=== PATIENT | male | born 1995 | race Caucasian/White ===

== ENCOUNTER 2018-05-03 14:44 | Inpatient (IN) | payer BC, OTHER ==
[~2018-05-03] VITALS: Ht 180.3 cm; Wt 77.1 kg
--- NOTE | 2018-05-03 15:40 | NUR ---
Pre- admission Patient met in intake office @ 1540, he is alert and oriented with a steady gait and is able to answer questions appropriately and clearly. He states he is here at [facility] for a medically supervised withdrawal from Opiates ( heroin IV ) and states he also uses Methamphetamines IV daily. VS = BP 141/91, HR 99, O2 99%, RR 18, NKA, 0/10 pain He reports he last used 0.5G Heroin IV @ noon today and <0.5G Meth IV @ noon today. He is not displaying any signs of withdrawal at this time. Will continue assessment when Patient is on the floor.
[2018-05-03] MEDS ORDERED: IBUPROFEN 600 MG TABLET PO PRN (18:00)
[2018-05-03] MEDS ORDERED: diphenhydrAMINE 50 MG CAPSULE PO PRN (18:00)
[2018-05-03] MEDS ORDERED: METHOCARBAMOL 750 MG TABLET PO PRN (18:00)
[2018-05-03] MEDS ORDERED: ACETAMINOPHEN 325 MG TABLET PO PRN (18:00)
[2018-05-03] MEDS ORDERED: LOPERAMIDE HCL 2 MG CAPSULE PO PRN ×2 (18:00)
[2018-05-03] MEDS ORDERED: MAG HYDROX/AL HYDROX/SIMETH 30 ML LIQUID UDC PO PRN (18:00)
[2018-05-03] MEDS ORDERED: CLONIDINE HCL 0.1 MG TABLET PO PRN (18:00)
[2018-05-03] MEDS ORDERED: DICYCLOMINE HCL 20 MG TABLET PO PRN (18:00)
[2018-05-03] MEDS ORDERED: ONDANSETRON 4 MG/2 ML VIAL IM PRN (18:00)
[2018-05-03] MEDS ORDERED: HYDROXYZINE PAMOATE 25 MG CAPSULE PO PRN (18:00)
[2018-05-03] MEDS ORDERED: BUPRENORPHINE HCL 2 MG TAB.SUBL SL PRN (18:00)
[2018-05-03] MEDS ORDERED: MAGNESIUM HYDROXIDE 30 ML LIQUID UDC PO PRN (18:00)
[2018-05-03] MEDS ORDERED: LORAZEPAM 1 MG TABLET PO PRN (18:00)
[2018-05-03] MEDS ORDERED: ONDANSETRON ODT 4 MG TAB.RAPDIS SL PRN (18:00)
--- NOTE | 2018-05-03 18:00 | NUR ---
Admission Note Patient is a 22 yr old male who was admitted to [facility] on 05/03/18 for a medically supervised withdrawal from Opiates ( heroin IV) and also states he was using Methamphetamines IV. He is alert and oriented and does not appear in withdrawal but is slightly intoxicated . He has a sad flat affect and avoids eye contact, his body movements are fidgety and he is hyper active at times. He claims no medical / psych history, takes no medications, has no PCP, heroin OD x2 one which he was hospitalized . Substance Use History: Heroin 1G IV daily for last 3 weeks, last used 0.5G IV at noon today Methamphetamines 1G daily for the past 3 weeks, last used < 0.5G at noon today. Patient reports he has been in a sober living for the past month up until today and has been using while living there, he reports he achieved 60 days of sobriety prior to that in approx January/Mar 2018. His longest period of sobriety was 9 months in [id number]. Treatment History: [facility] [id number] detox and then Treatment to Sober living ( currently in Sober Living there now) [facility] ( [place]) [facility] when he was 15 yrs old Patient states his reason for being here today is that he is trying to do the right thing and get clean now, he is tired of his way of life and needs to be more productive. He states he has a good support system: his girlfriend and parents are supportive and want him to get the help he needs to lead a happy life. Patient states his barriers for staying sober are poor impulse control, negative self image, peer pressure and negative social acquaintances. MRSA swab sent to lab Unable to score admission COWS due to patient not being in withdrawal, he states his symptoms when he withdraws are N/V, Muscle aches, irritability, cravings, diarrhea and stomach pains. Educated Pt about plan of care including detox, group therapy, and discharge planning. Encouraged Pt to be open and honest and verbalized support for his recovery. Oriented Pt to room and unit. Addendum: 05/04/18 at 1317 by ARJUN CASEY RN Additional information: Patient began using heroin 7 years ago and methamphetamines 9 years ago. Both of his overdoses were from heroin and they both occurred 4 years ago and required medical treatment. Clarification: Patient was not at [facility] from [id number]. He was at their detox and residential facilities for 2 months total in January and March of 2018. He transitioned to their sober living one month ago and that is where he began using again.
[2018-05-03 18:29] LABS: BASOPHILS % (AUTO) 0.3 % (0.0-2.0); EOSINOPHILS # (AUTO) 0.1 K/uL (0.0-0.7); EOSINOPHILS % (AUTO) 1.1 % (0.0-7.0); HEMATOCRIT 46.3 % (36.7-47.1); HEMOGLOBIN 15.8 g/dL (12.5-16.3); LYMPHOCYTES # (AUTO) 2.9 K/uL (20.0-40.0); LYMPHOCYTES % (AUTO) 33.8 % (20.5-51.5); MEAN CORPUSCULAR HEMOGLOBIN 29.5 uug (23.8-33.4); MEAN CORPUSCULAR HGB CONC 34 g/dL (32.5-36.3); MEAN CORPUSCULAR VOLUME 86.2 fL (73.0-96.2); MONOCYTES # (AUTO) 0.9 K/uL (2.0-10.0); MONOCYTES % (AUTO) 9.9 % (0.0-11.0); NEUTROPHILS # (AUTO) 4.7 K/uL (1.8-8.9); NEUTROPHILS % (AUTO) 54.9 % (38.5-71.5); PLATELET COUNT (AUTO) 298 K/uL (152-348); RED BLOOD CELL COUNT(AUTO) 5.37 MIL/uL (4.06-5.63); WHITE BLOOD COUNT (AUTO) 8.6 K/uL (3.6-10.2)
[2018-05-03 18:36] LABS: *AMPHETAMINE, URINE POSITIVE (NEGATIVE); *BARBITURATE, URINE NEGATIVE (NEGATIVE); *CANNABINOID, URINE POSITIVE (NEGATIVE); *COCCAINE, URINE NEGATIVE (NEGATIVE); *OPIATE, URINE POSITIVE (NEGATIVE); *PHENCYCLIDINE SCREEN,URINE NEGATIVE (NEGATIVE)
[2018-05-03 18:39] LABS: ALANINE AMINOTRANSFERASE 90 U/L (16-63); ALKALINE PHOSPHATASE 59 U/L (50-136); ASPARTATE AMINOTRANSFERASE 34 U/L (15-37); CARBON DIOXIDE 31 mmol/L (21-32); CHLORIDE 104 mmol/L (98-107); CREATININE 1.3 mg/dL (0.6-1.3); GLUCOSE 59 mg/dL (74-106); MAGNESIUM 2.3 mg/dL (1.8-2.4); POTASSIUM 3.9 mmol/L (3.5-5.1); UREA NITROGEN, BLOOD 13 mg/dL (7-18)
[2018-05-03 18:44] LABS: ETHANOL < 3 MG/DL (0-0)
[2018-05-03 18:48] LABS: THYROID STIMULATING HORMONE 1.903 mIU/mL (0.358-3.740)
--- NOTE | 2018-05-03 18:53 | NUR ---
End Of Shift Patient is a 22 yr old male who was admitted today 05/03/18 @ 1730 for a medically supervised withdrawal from Opiates ( heroin IV ). He has been placed on a 4 day Subutex taper which will start tomorrow 05/04/18. Patient has provided a UDS and blood labs have been drawn. No PRN medications have been given. MRSA swab sent to lab. COWS 7 @ 1800. Continue to follow MD plan of care and offer support and encouragement. Endorsed to [employer] 2nd shift.
--- NOTE | 2018-05-03 19:30 | NUR ---
Start of shift Patient is a 22 year old male, admitted on 05/03/2018 for medically supervised Opiate withdrawal. Patient is on a 4 day Subutex taper. Patients last COWS was 7. Per endorsement patient did not have any PRN during day shift. Patient is on Fall and Seizure precautions. Upon rounds patient was noted in room watching tv, reviewed plan of care with patient and he verbalized understanding. Patient is seems depressed, flat affect, and anxious. Respirations are even and unlabored. Patients bed lock in low position, side rails raised x2, and call light within reach. Will continue to monitor.
[2018-05-03 20:00] VITALS: BP 136/69
--- NOTE | 2018-05-03 20:00 | NUR ---
COWS Assessment Patient states he is presenting with s/s of withdrawal as follow: tremors, anxiety, agitation, body aches, and mild sweats. Patients COWS is 8. Respirations are even and unlabored. Safety measures in place will continue to monitor.
[2018-05-04] VITALS: BP 128/78
--- NOTE | 2018-05-04 | NUR ---
COWS Deferred Patient is noted resting in bed with eyes closed, respirations are even and unlabored. Per protocol patient is to be assessed while awake for COWS. Safety measures in place will continue to monitor.
[2018-05-04 04:00] VITALS: BP 130/76
--- NOTE | 2018-05-04 07:15 | NUR ---
Start of Shift Note Pt. is 22 y/o male admitted for medically managed withdrawal from Opiates. Pt. was also using methamphetamine concurrently with his opiates abuse. Pt. was placed on a 4 day Subutex taper to manage his withdrawal symptoms. Endorse from previous shift pt. presented with depression, and anxiety. Received pt. in room. Pt. in bed with eyes closed. No signs of distress noted at this time. Safety measures in place. Will continue to monitor pt.s behavior at this time for safety.
--- NOTE | 2018-05-04 07:18 | NUR ---
End of shift Patient is a 22 year old male, admitted on 05/03/2018 for medically supervised Opiate withdrawal. Patient is on a 4 day Subutex taper. Patients last COWs was 8. Per endorsement patient did not have any PRN during day shift. Patient is on Fall and Seizure precautions. Patient is seems depressed, flat affect, and anxious. Patient slept for 7 hours and had a total intake of 1,210 ml. Patient voided x2 and had no bowel movements during this shift. Respirations are even and unlabored. Patients bed lock in low position, side rails raised x2, and call light within reach. Will endorse to day shift.
[2018-05-04 08:00] VITALS: BP 140/83
--- NOTE | 2018-05-04 08:00 | NUR ---
COWS Assessment COWS of 10. Pt. in room laying in bed. Pt. presents as disheveled with flushed facial skin, restlessness, body aches, congestion, and anxiety. Will give medication as ordered. Will continue to monitor pt.'s behavior for safety.
[2018-05-04] MEDS ORDERED: 4 DAY TAPER BUPRENORPHINE -SERENITY PROTOCOL SL PRN (09:00)
[2018-05-04] MEDS ORDERED: TUBERCULIN,PURIF.PROT.DERIV. 5 TU/0.1 ML TEST ID ONE (09:00)
[2018-05-04] MEDS: BUPRENORPHINE HCL 2 MG TAB.SUBL SL SCH ×3 (09:03→21:09)
[2018-05-04 12:00] VITALS: BP 141/76
--- NOTE | 2018-05-04 12:00 | NUR ---
COWS Assessment COWS of 10. Pt. in room laying in bed. Pt. presents as disheveled with flushed facial skin, restlessness, body aches, congestion, and anxiety. Pt. compliant with medication regiment. Will continue to monitor pt.'s behavior for safety.
--- NOTE | 2018-05-04 14:45 | NUR ---
Therapist prompted client to attend all group therapy sessions.
[2018-05-04 16:00] VITALS: BP 145/80
--- NOTE | 2018-05-04 16:00 | NUR ---
COWS Assessment COWS of 9. Pt. in room laying in bed. Pt. presents as disheveled with flushed facial skin, restlessness, body aches, congestion, and anxiety. Pt. compliant with medication regiment. Will continue to monitor pt.'s behavior for safety.
--- NOTE | 2018-05-04 19:09 | NUR ---
End of Shift Note Pt. is 22 y/o male admitted for medically managed withdrawal from Opiates. Pt. was also using methamphetamine concurrently with his opiates abuse. Pt. was placed on a 4 day Subutex taper to manage his withdrawal symptoms. Throughout shift pt. presented with depression, and anxiety. Pt. compliant with medication regiment and treatment plan. Safety measures in place. Will endorse pt.s behavior for safety.
--- NOTE | 2018-05-04 19:30 | NUR ---
Start of Shift Patient Received. Per endorsement, patient has completed a 5 day Valium and 4 day Subutex. Patient is set for discharge tomorrow 05/05/18. Patient received PRN Vistaril, Motrin, and Toradol with medications noted to be effective. Last noted COWS 10 and CIWA 9. Upon rounds, patient is noted in the activities room participating in a group meeting. Will continue plan of care as ordered.
--- NOTE | 2018-05-04 19:30 | NUR ---
Start of Shift Patient Received. Per endorsement, patient continues on a 4 day Subutex taper. Patient has been noted to be isolative to room and non compliant with group or social activities. No PRN medications administered. Last noted COWS 9. Upon rounds patient is noted in his room, with eyes closed. Breathing even and non labored. Room appears odorous and unkempt. Safety measures in place. Will continue plan of care as ordered.
[2018-05-04 20:30] VITALS: BP 120/72
[2018-05-05 00:38] VITALS: BP 117/66
--- NOTE | 2018-05-05 00:48 | NUR ---
COWS Assessment Patient is noted in bed with eyes closed. Breathing even and non labored. No signs of restlessness or facial grimacing. COWS not able to be completed as per order. Vitals rendered. All needs attended to promptly. Will continue to monitor.
--- NOTE | 2018-05-05 04:20 | NUR ---
COWS Assessment Patient is noted in bed with eyes closed. Breathing even and non labored. No signs of restlessness or discomfort noted. COWS not able to be completed as per order. Vitals refused. Will continue to monitor.
--- NOTE | 2018-05-05 07:19 | NUR ---
End of Shift Patient is noted in bed with eyes closed. Breathing even and non labored. Patient continues on a 4 day Subutex taper. No PRN medication administered. Patient is noted to sleep a total of 8 hours. Last noted COWS 9. All needs attended to promptly. Will endorse to continue plan of care as ordered.
--- NOTE | 2018-05-05 07:30 | NUR ---
START OF SHIFT Pt 22 y/o male admitted for opiate withdrawal. Pt received in room on bed with eyes closed resting, but easily arousable to name. Pt alert and oriented to name, place, and time. Perrla. Skin warm and moist to touch. Respirations even and unlabored. Appears disheveled and unkempt. Clothes scattered throughout the room. Encouraged to maintain hygiene. Anxious and restless. Pressured speech. Bilateral hand tremors noted. Irritable. Complaints of generalized discomfort. It was reported that pt slept for 7 hours last night. Last cows=9 @ 2000. Pt is on a 4 day subutex taper and is on day 2. Bed on lowest position with side rails x2 up for safety. Call light within reach.
[2018-05-05 08:00] VITALS: BP 122/65
--- NOTE | 2018-05-05 08:00 | NUR ---
COWS ASSESSMENT cows=11. Anxious and restless. Pressured speech noted. Bilateral hand tremors noted. Complaints of generalized body aches, discomfort, and intermittent perspirations.
[2018-05-05 08:06] LABS: HEPATITIS B SURFACE AG Negative (Negative)
[2018-05-05] MEDS ORDERED: BUPRENORPHINE HCL 2 MG TAB.SUBL SL SCH (09:00)
--- NOTE | 2018-05-05 10:24 | NUR ---
Therapist prompted client to attend group therapy sessions. Client agreed to attend.
--- NOTE | 2018-05-05 11:46 | NUR ---
PRN CATAPRES VISTARIL MOTRIN ROBAXIN States has body aches 02/08. Robaxin po prn per MD order given and tolerated well. States has body pain 01/09. Motrin po prn per MD order given and tolerated well. States is very anxious. Restless. Not able to sit still. Vistaril po prn per MD order given and tolerated well. Catapres po prn per MD order given and tolerated well. Addendum: 05/05/18 at 1152 by CASS HURLEY RN incorrect pt
[2018-05-05 12:00] VITALS: BP 134/69
--- NOTE | 2018-05-05 12:00 | NUR ---
COWS ASSESSMENT cows=11. Bilateral hand tremors noted. Anxious and restless. Pressured speech. Complaints of generalized discomfort and body aches.
[2018-05-05] MEDS ORDERED: NEOMY/BACITRA/POLYMYXIN B OINT UD PACKET TP PRN (14:30)
[2018-05-05] MEDS ORDERED: TRIAMCINOLONE ACETONIDE 0.1% 60 ML BOTTLE TOP PRN (14:30)
[2018-05-05] MEDS: BUPRENORPHINE HCL 2 MG TAB.SUBL SL SCH ×2 (15:09→20:47)
[2018-05-05 16:00] VITALS: BP 135/79
--- NOTE | 2018-05-05 16:00 | NUR ---
COWS ASSESSMENT cows=11. Anxious and restless. Pressured speech. Not able to sit still. Irritable. Bilateral hand tremors noted. Complaints of intermittent perspiration and generalized discomfort.
--- NOTE | 2018-05-05 18:12 | NUR ---
END OF SHIFT Pt 22 y/o male admitted for opiate withdrawal. Pt alert and oriented to name, place, and time. Perrla. Skin warm and moist to touch. Respirations even and unlabored. Appears disheveled. Clothes and food wrappings scattered throughout the room. Encouraged to maintain hygiene. Anxious and restless. Pressured speech noted. Irritable. Not able to sit still. Pacing. Complaints of generalized discomfort and body aches. Isolative to room with minimal peer interaction. Low motivation for self care. Attended group activity. Medication compliant. Was seen by MD today. Last cows=11 @1600. Pt is on a 4 day subutex taper and is on day 2. Bed on lowest position with side rails x2 up for safety. Call light within reach.
--- NOTE | 2018-05-05 19:30 | NUR ---
Start of Shift Patient Received. Patient continues on a modified 4 day Subutex taper. Patient is noted to be isolative to room and non compliant with groups and social activities. He is noted to go out to smoke breaks. No PRN medications administered. Last noted COWS 11. He was seen and evaluated by MD with new order for Triamcinolone topically to affected areas. Upon rounds patient is noted in bed awake and watching TV. Patient engages in conversation and is able to verbalize the medication is effective in minimizing signs and symptoms of withdrawal. All needs attended to promptly. Will continue plan of care as ordered.
[2018-05-05 20:31] VITALS: BP 139/71
--- NOTE | 2018-05-06 00:20 | NUR ---
COWS Assessment Patient is noted in bed with eyes closed. Breathing even and non labored. No signs of restlessness or facial grimacing noted. COWS not able to be completed as per order. Patient refused vitals All needs attended to promptly. Will continue to monitor.
--- NOTE | 2018-05-06 04:20 | NUR ---
COWS Assessment Patient is noted in bed with eyes closed. Breathing even and non labored. NO restlessness or facial grimacing noted. COWS not able to be completed as per order .Will continue to monitor.
--- NOTE | 2018-05-06 07:12 | NUR ---
End of Shift Patient is in bed sleeping. Breathing even and non labored. Patient continues on a modified 4 day Subutex taper. Patient continues to be isolative to room and non compliant with groups and social activities. He is noted to go out to smoke breaks. No PRN medications administered. Last noted COWS 10. All needs attended to promptly. Will endorse to continue plan of care as ordered.
--- NOTE | 2018-05-06 07:30 | NUR ---
START OF SHIFT Pt 22 y/o male admitted for opiate withdrawal. Pt received in room on bed with eyes closed resting, but easily arousable to name. Pt alert and oriented to name, place, and time. P[place]la. Skin warm and moist to touch. Respirations even and unlabored. Appears disheveled. Clothes scattered throughout the room. Encouraged to maintain hygiene. Anxious and restless. Fidgety. Not able to lay still. Pressured speech. Bilateral hand tremors noted. Complaints of generalized discomfort. It was reported that pt slept for 7 hours last night. Last cows=10 @ 2000. Pt is on a 4 day subutex taper and is on day 3. Bed on lowest position with side rails x2 up for safety. Call light within reach.
[2018-05-06 08:00] VITALS: BP 134/84
--- NOTE | 2018-05-06 08:00 | NUR ---
COWS ASSESSMENT cows=10. Anxious and restless. Pressured speech. Fidgety. Pacing. Easily irritable. Bilateral hand tremors noted. Complaints of body aches and generalized discomfort. Intermittent perspiration.
[2018-05-06] MEDS: BUPRENORPHINE HCL 2 MG TAB.SUBL SL SCH ×3 (08:22→21:20)
[2018-05-06 12:00] VITALS: BP 139/62
--- NOTE | 2018-05-06 12:00 | NUR ---
COWS ASSESSMENT cows=10. Bilateral hand tremors noted. Anxious and restless. Pressured speech. Easily irritable. Complaints of generalized body aches.
[2018-05-06] MEDS ORDERED: NEOMY/BACITRAC/POLYMI OINT 28.35 GM TUBE TP PRN (15:35)
[2018-05-06 16:00] VITALS: BP 161/92
--- NOTE | 2018-05-06 16:00 | NUR ---
COWS ASSESSMENT cows= 10. Anxious and restless. Pressured speech noted. Fidgety. Easily irritable. Bilateral hand tremors noted.
[2018-05-06 16:30] VITALS: BP 148/76
--- NOTE | 2018-05-06 18:40 | NUR ---
END OF SHIFT Pt 22 y/o male admitted for opiate withdrawal. Pt alert and oriented to name, place, and time. P[place]. Skin warm and moist to touch. Respirations even and unlabored. Appears disheveled and unkempt. Clothes and empty drink bottles scattered throughout the room. Encouraged to maintain hygiene. Anxious and restless. Pressured speech. Pacing. Fidgety. Bilateral hand tremors noted. Complaints of intermittent perspirations and chills. Complaints of body aches and generalized discomfort. Observed mostly in recreational room today. Medication compliant. Last cows=10 @1600. Pt is on a 4 day subutex and is day 3. Bed on lowest position with side rails x 2 up for safety. Call light within reach.
--- NOTE | 2018-05-06 19:30 | NUR ---
Start of Shift Patient Received. Per endorsement, patient continues on a modified Subutex taper. Patient continues to be isolative to room and non compliant with group and social activities. No PRN medications administered. Last noted CIWA 8. Upon rounds, patient is noted in bed awake alert and verbally responsive. Breathing even and non labored. No signs and symptoms of withdrawal noted. Patient is able to verbalize medication has been effective in reducing symptoms. Routine medications reviewed. Will continue plan of care as ordered.
--- NOTE | 2018-05-06 20:30 | NUR ---
COWS assessment Patient continues to be monitored for increased signs and symptoms of withdrawal. He is noted with increased body aches, nasal stuffiness, stomach cramps. tremulous, increased anxiety, agitation, and increased sweats. Patient verbalizes that medication has been noted to minimize symptoms. Will continue to monitor.
[2018-05-06 20:45] VITALS: BP 141/74
--- NOTE | 2018-05-07 00:31 | NUR ---
COWS Assessment Patient is noted in bed with eyes closed. Breathing even and non labored. No signs of restlessness or discomfort noted. COWS and CIWA not able to be completed as per order. Vitals Refused. Will continue to monitor.
--- NOTE | 2018-05-07 04:16 | NUR ---
COWS Assessment Patient is noted in bed with eyes closed. Breathing even and non labored. No signs of restlessness or discomfort noted. COWS not able to be completed as per order. Vitals Refused. Will continue to monitor.
--- NOTE | 2018-05-07 07:10 | NUR ---
End of Shift Patient is in bed with eyes closed. Breathing even and non labored. No signs of restlessness or discomfort noted. Patient continues on a modified Subutex taper. No PRN medications administered. Last noted COWS 9. Patient noted to sleep a total of 7 hours. All needs attended to promptly. Will endorse to continue plan of care as ordered.
--- NOTE | 2018-05-07 07:30 | NUR ---
Start of shift Note Pt. is a 22 y/o male admitted for the medically managed withdrawal from Opiates. Pt. was placed on a 4 day Subutex taper to manage withdrawal symptoms. Endorse from previous shift pt. presented with anxiety and restlessness. Received pt. in room. Pt. laying in bed with eyes closed. No signs of distress noted. Safety measures in place. Will continue to monitor pt.s behavior for safety.
[2018-05-07 08:00] VITALS: BP 141/78
--- NOTE | 2018-05-07 08:00 | NUR ---
COWS Assessment COWS of 8. Pt. presents with anxiety, restlessness and body aches. Will give medications as ordered. Will continue to monitor pt. for safety.
[2018-05-07] MEDS ORDERED: BUPRENORPHINE HCL 2 MG TAB.SUBL SL SCH (09:00)
[2018-05-07 12:00] VITALS: BP 134/62
--- NOTE | 2018-05-07 12:00 | NUR ---
COWS Assessment COWS of 6. Pt. presents with anxiety, restlessness and body aches. Pt. compliant with medication regiment and treatment plan. Will continue to monitor pt. for safety.
[2018-05-07] MEDS ORDERED: TRIA60LO7 TOP (13:11)
[2018-05-07 16:00] VITALS: BP 136/74
--- NOTE | 2018-05-07 19:08 | NUR ---
CIWA Assessment/PRN Medication CIWA of 15. Pt. in room complaining of increased anxiety and presenting with tremors, agitation, diaphoresis and restlessness. PRN Valium given at this time to manage withdrawal symptoms. Endorse to oncoming shift to re-assess pt. for medication effectiveness and safety. Addendum: 05/07/18 at 1933 by WALLACE DÍAZ RN Entered in error please disregard
--- NOTE | 2018-05-07 19:15 | NUR ---
Start of Shift Note: Patient is a 22 y.o male admitted on 05/03/18 for medically supervised withdrawal from Heroin. Patient also reported using Meth. He is alert & oriented x4. Patient completed his 4-day Subutex taper and is scheduled to be discharge today. No PRN medications received today. Last COWS 6. Patient remained stable. Pt remained compliant. Pt noted to be attending groups. Will continue to encourage participation in group therapies to learn new coping skills. Educated pt of current plan of care for the night and medication regimen. Encourage pt to increase fluid intake. Safety measures in place. Bed locked in lowest position. Both side rails up. Call light within pt's reach. Will continue to monitor patient.
--- NOTE | 2018-05-07 19:26 | NUR ---
End of Shift Note Pt. is a 44 y/o male admitted for the medically managed withdrawal from ETOH, and Opiates. Pt. was also used methamphetamines, and Klonopin before coming in. Pt. was placed on a 4 day Subutex taper and 4 day valium taper to manage withdrawal symptoms. Throughout shift pt. presented with anxiety, tremors, agitation , nausea, emesis x 1, and restlessness. PRN Zofran, Vistaril, Clonidine, Robaxin, Valium and Motrin given to manage withdrawal symptoms. Safety measures in place. Will endorse pt.s care to oncoming shift. Addendum: 05/07/18 at 1928 by WALLACE DÍAZ RN This note is entered in error. Please disregard.
--- NOTE | 2018-05-07 19:28 | NUR ---
End of shift Note Pt. is a 22 y/o male admitted for the medically managed withdrawal from Opiates. Pt. was placed on a 4 day Subutex taper to manage withdrawal symptoms. Pt. completed his taper medication this morning and is scheduled to be discharge tomorrow. Throughout shift pt. presented with anxiety and restlessness. Safety measures in place. Will endorse pt.s care to oncoming shift.
[2018-05-07 20:00] VITALS: BP 136/65
--- NOTE | 2018-05-08 07:06 | NUR ---
End of Shift Note: Patient still asleep at this time. He remained alert & oriented x4. He completed his 4-day Subutex taper and is scheduled to be discharge to [facility]. Last COWS 6. No PRN medications received during my shift. Pt remained stable and vitals noted WNL. All needs attended. Pt was able to sleep for a total of 7 hours. Fluid intake 855ml. Voided 2x with no BM noted. Safety measures in place. Will endorse pt to day shift nurse.
--- NOTE | 2018-05-08 07:30 | NUR ---
START OF SHIFT Endorse rcvd from ongoing nurse, client is in room, a/o x 4, he presents with anxious mood, flat affect, and enlarged pupils. Client reports feeling anxious because he is being discharge today to [facility] for continuity of treatment. Last COWS 6.Client completed 4 day Subutex taper. he had an uneventful night, slept 7 hrs. [place] precautions. Call light within reach.
[2018-05-08 08:59] VITALS: BP 100/68
--- NOTE | 2018-05-08 09:29 | NUR ---
Discharge Note Client discharged in stable condition with all valuable, belongings and prescription x 1. Client denies SI/HI. To [place] [facility] via private car.
== END 2018-05-08 09:27 | disposition other institution (70) | DRG 895 ==
LOC: SRC 15:39
PROVIDERS: ADMIT Family Medicine Addiction Medicine; ATTEND Family Medicine Addiction Medicine
PROC: HZ2ZZZZ Detoxification Services for Substance Abuse Treatment (ICD-10-PCS; principal; 2018-05-03)
PROC: HZ41ZZZ Group Counseling for Substance Abuse Treatment, Behavioral (ICD-10-PCS; 2018-05-05)
PROC: HZ31ZZZ Individual Counseling for Substance Abuse Treatment, Behavioral (ICD-10-PCS; 2018-05-05)
DX: F11.23 Opioid dependence with withdrawal (principal); F17.210 Nicotine dependence, cigarettes, uncomplicated; Z65.3 Problems related to other legal circumstances; F15.23 Other stimulant dependence with withdrawal; L40.9 Psoriasis, unspecified; F41.1 Generalized anxiety disorder
CPT/HCPCS: 36415; 70030-TC; 80307; 80324; 80349; 80361; 83735; 84443; 85025; 86580; 86592; 86705; 86803; 87340; 87806; A4663; G0480